=== PATIENT | male | born 1985 | race Asian ===

== ENCOUNTER → 2023-05-16 11:19 | Outpatient (REF) | payer BC, SELFPAY | LOC: HWRAD 11:19 | PROVIDERS: ATTENDING PHYSICIAN Internal Medicine Gastroenterology; FAMILY PHYSICIAN Nurse Practitioner Family | DX: R14.0 Abdominal distension (gaseous) (principal) | CPT/HCPCS: 76700 ==

== ENCOUNTER → 2023-09-17 11:08 | Outpatient (REF) | payer BC, SELFPAY | LOC: HWRAD 11:08 | PROVIDERS: ATTENDING PHYSICIAN Internal Medicine Gastroenterology; FAMILY PHYSICIAN Nurse Practitioner Family | DX: K58.9 Irritable bowel syndrome, unspecified (principal); R10.9 Unspecified abdominal pain | CPT/HCPCS: 74178; Q9967 ==

== ENCOUNTER 2024-02-11 06:28 | Day surgery (SDC) | payer BC, SELFPAY | END 2024-02-11 14:45 | disposition home or self-care (01) | LOC: GI 06:28 | PROVIDERS: ATTENDING PHYSICIAN Internal Medicine Gastroenterology | DX: D51.0 Vitamin B12 deficiency anemia due to intrinsic factor deficiency (principal); K44.9 Diaphragmatic hernia without obstruction or gangrene; K22.89 Other specified disease of esophagus; K25.9 Gastric ulcer, unspecified as acute or chronic, without hemorrhage or perforation; K29.50 Unspecified chronic gastritis without bleeding; L83 Acanthosis nigricans | CPT/HCPCS: 43239; 88305 ==

== ENCOUNTER → 2024-10-31 16:36 | Outpatient (REF) | payer BC, SELFPAY | LOC: RAD 16:36 | PROVIDERS: ATTENDING PHYSICIAN Nurse Practitioner Family | DX: R91.1 Solitary pulmonary nodule (principal) | CPT/HCPCS: 71260; Q9967 ==